=== PATIENT | male | born 1965 | race American Indian/Alaskan Native ===

== ENCOUNTER 2021-09-27 01:08 | Emergency (ER) | payer BC, OTHER ==
[2021-09-27 01:20] VITALS: BP 117/78; PULSE 98
[2021-09-27] MEDS ORDERED: GI Cocktail Oral Solution 30 ML PO ONE (01:31)
[2021-09-27 02:00] LABS: BARBITURATES,URINE NEGATIVE (NEGATIVE); BENZODIAZEPINE,URINE NEGATIVE (NEGATIVE); MDMA (ECSTASY), URINE NEGATIVE (NEGATIVE); METHADONE,URINE NEGATIVE (NEGATIVE); METHAMPHETAMINES,URINE NEGATIVE (NEGATIVE); OPIATES,URINE NEGATIVE (NEGATIVE); TCA,URINE NEGATIVE (NEGATIVE)
[2021-09-27 02:01] LABS: AMPHETAMINES,URINE NEGATIVE (NEGATIVE); OXYCODONE,URINE NEGATIVE (NEGATIVE); PHENCYCLIDINE,URINE NEGATIVE (NEGATIVE)
[2021-09-27 02:03] LABS: ANION GAP 13.9 mEq/L (7-13)
== END 2021-09-27 02:20 | disposition home or self-care (01) ==
LOC: DL.ED 01:08
DX: R10.10 Upper abdominal pain, unspecified (principal); R10.13 Epigastric pain; F17.210 Nicotine dependence, cigarettes, uncomplicated
CPT/HCPCS: 36415; 80053; 80305; 81003; 82150; 83605; 83690; 85025; 87040; 99284; A9270

== ENCOUNTER 2022-11-11 19:08 | Emergency (ER) | payer BC, OTHER ==
[2022-11-11] MEDS ORDERED: diphenhydrAMINE 50 MG Cap PO ONE (19:41)
[2022-11-11 19:51] VITALS: BP 135/89; PULSE 98
== END 2022-11-11 20:17 | disposition home or self-care (01) ==
LOC: DL.ED 19:08
DX: S20.96XA Insect bite (nonvenomous) of unspecified parts of thorax, initial encounter (principal); L50.0 Allergic urticaria; F17.210 Nicotine dependence, cigarettes, uncomplicated
CPT/HCPCS: 99282; Q0163

== ENCOUNTER 2023-04-29 17:41 | Emergency (ER) | payer BC, OTHER ==
[2023-04-29 18:04] VITALS: BP 124/82; PULSE 95
[2023-04-29] MEDS: Ketorolac 30 MG/ML SDV IM ONE (18:22)
== END 2023-04-29 18:28 | disposition home or self-care (01) ==
LOC: DL.ED 17:41
DX: B34.9 Viral infection, unspecified (principal); F17.210 Nicotine dependence, cigarettes, uncomplicated; Z86.16 Personal history of COVID-19
CPT/HCPCS: 96372; 99282; 99283; J1885

== ENCOUNTER 2023-08-02 20:30 | Emergency (ER) | payer BC, OTHER ==
[2023-08-02 21:20] VITALS: BP 122/86; PULSE 106
== END 2023-08-02 21:07 | disposition home or self-care (01) ==
LOC: DL.ED 20:30
DX: R09.89 Other specified symptoms and signs involving the circulatory and respiratory systems (principal); R55 Syncope and collapse; Z79.82 Long term (current) use of aspirin; Z79.899 Other long term (current) drug therapy; Z86.16 Personal history of COVID-19
CPT/HCPCS: 99283

== ENCOUNTER 2023-12-17 07:20 | Day surgery (SDC) | payer BC, OTHER ==
[2023-12-17] MEDS: Dextrose 5%-0.45% NaCl 1,000 ML IV SCH (07:40)
[2023-12-17] MEDS ORDERED: fentaNYL 100 MCG/2 ML SDV IV ONE (07:41)
[2023-12-17] MEDS ORDERED: Midazolam 1 MG/ML 2 ML SDV IV ONE (07:41)
[2023-12-17] MEDS ORDERED: Midazolam 1 MG/ML 2 ML SDV ONE (07:41)
[2023-12-17] MEDS ORDERED: fentaNYL 100 MCG/2 ML SDV ONE (07:41)
[2023-12-17] MEDS: fentaNYL 100 MCG/2 ML SDV IV ONE ×2 (08:11)
[2023-12-17] MEDS: Midazolam 1 MG/ML 2 ML SDV IV ONE ×2 (08:12→08:14)
[2023-12-17 09:42] VITALS: BP 106/74; PULSE 78
== END 2023-12-17 09:57 | disposition home or self-care (01) ==
LOC: DL.ENDO 07:20
PROVIDERS: ATTEND Internal Medicine Gastroenterology
DX: K31.A11 Gastric intestinal metaplasia without dysplasia, involving the antrum (principal)
CPT/HCPCS: J2250; J3010; J7799